=== PATIENT | male | born 1935 | race Caucasian/White ===

== ENCOUNTER 2019-01-14 08:33 | Day surgery (SDC) | payer OTHER ==
[~2019-01-14 08:33] MED LIST: BICA50TA7 PO; ENAL10TA PO; METF-444 PO; PRAV20TA4 PO; SODIUM CHLORIDE 0.9% 1000ML 1,000 ML IV ONE
[2019-01-14 08:56] VITALS: BP 108/75
[2019-01-14] MEDS ORDERED: PROPOFOL 10 MG/ML 20ML VIAL IV ONE (10:27)
[2019-01-14 10:56] VITALS: BP 109/57
[2019-01-14 11:03] VITALS: BP 114/62
[2019-01-14 11:09] VITALS: BP 101/61
== END 2019-01-14 11:30 | disposition home or self-care (01) ==
LOC: DAH 08:33 → ENDO 08:33 → EDSTATUS 09:15 → ENDO 11:30
PROVIDERS: ATTEND Internal Medicine
DX: D12.0 Benign neoplasm of cecum (principal); K62.1 Rectal polyp; K29.70 Gastritis, unspecified, without bleeding; B96.81 Helicobacter pylori [H. pylori] as the cause of diseases classified elsewhere; K57.30 Diverticulosis of large intestine without perforation or abscess without bleeding; K64.0 First degree hemorrhoids; K44.9 Diaphragmatic hernia without obstruction or gangrene; K31.89 Other diseases of stomach and duodenum; K22.8 Other specified diseases of esophagus; D50.9 Iron deficiency anemia, unspecified; I10 Essential (primary) hypertension; E11.9 Type 2 diabetes mellitus without complications; E78.2 Mixed hyperlipidemia; Z85.46 Personal history of malignant neoplasm of prostate; Z79.84 Long term (current) use of oral hypoglycemic drugs; Z79.899 Other long term (current) drug therapy; Z90.89 Acquired absence of other organs; Z98.890 Other specified postprocedural states
CPT/HCPCS: 43239; 45380; 82948; 88305; A4606; J2704; J7030

== ENCOUNTER 2021-11-01 06:17 | Day surgery (SDC) | payer OTHER ==
[2021-10-31 12:22] LABS: BASOPHILS % (AUTO) 0.4 % (0.0-5.0); EOSINOPHILS % (AUTO) 1.6 % (0.0-8.0); HEMATOCRIT 40.3 % (42-54); LYMPHOCYTES % (AUTO) 22.5 % (21.0-51.0); MEAN CORPUSCULAR HEMOGLOBIN 28.1 pg (27.0-33.0); MEAN CORPUSCULAR HGB CONC 32.5 g/dL (32.0-36.0); MEAN CORPUSCULAR VOLUME 86.5 fL (79-99); MONOCYTES % (AUTO) 6.6 % (3.0-13.0); NEUTROPHILS % (AUTO) 68.4 % (40.0-77.0); PLATELET COUNT (AUTO) 310 K/uL (130-400); RED BLOOD CELL COUNT(AUTO) 4.66 MIL/uL (4.50-6.20); RED CELL DISTRIBUTION WIDTH 14.6 % (11.0-15.5); WHITE BLOOD COUNT (AUTO) 8.2 K/uL (4.8-10.8)
[2021-10-31 12:35] LABS: INR 0.96 (0.85-1.15); PROTHROMBIN TIME 10.5 SEC (9.6-11.6)
[2021-10-31 12:36] LABS: PARTIAL THROMBOPLASTIN TIME 26.8 SEC (26.3-35.5)
[2021-10-31 12:53] LABS: CREATININE 0.9 mg/dL (0.5-1.5); POTASSIUM 4.7 mmol/L (3.5-5.1)
[2021-10-31 14:35] VITALS: BP 129/87
[~2021-11-01] VITALS: Ht 180.3 cm; Wt 73.8 kg
[2021-11-01] VITALS (18 sets, daily range): BP systolic 118–179; BP diastolic 68–105
[~2021-11-01 06:17] MED LIST changes: -ENAL10TA PO; +FERR-72 PO; -METF-444 PO; -PRAV20TA4 PO; +PRAV40TA3 PO; -SODIUM CHLORIDE 0.9% 1000ML 1,000 ML IV ONE; +VITAMIN B12 PO
[2021-11-01] MEDS ORDERED: FLUMAZENIL 0.1MG/1ML 5ML VIAL IV ONE (07:17)
[2021-11-01] MEDS ORDERED: LIDOCAINE HCL 2% VISCOUS 15 ML UDCUP ONE (07:17)
[2021-11-01] MEDS ORDERED: FENTANYL CITRATE PF 50 MCG/1 ML 2ML VIAL ONE (07:18)
[2021-11-01] MEDS ORDERED: NALOXONE HCL 0.4 MG/1 ML ML ONE (07:18)
[2021-11-01] MEDS ORDERED: MIDAZOLAM HCL 1 MG/ML 2ML VIAL ONE (07:19)
[2021-11-01] MEDS ORDERED: 0.9%NACL 1000ML 1,000 ML IV SCH (08:00)
== END 2021-11-01 09:45 | disposition home or self-care (01) ==
LOC: DAH 06:17
PROVIDERS: ATTEND Student in an Organized Health Care Education/Training Program
DX: I08.3 Combined rheumatic disorders of mitral, aortic and tricuspid valves (principal); I49.3 Ventricular premature depolarization; I10 Essential (primary) hypertension; Z79.01 Long term (current) use of anticoagulants; Z79.899 Other long term (current) drug therapy; Z98.890 Other specified postprocedural states
CPT/HCPCS: 36415; 80048; 82948; 85025; 85610; 85730; 87635; 93005; 93312; 93325; A4215; A4216; A4221; A4222; A4223 ×3; A4606; A4615; A4657; A4663; A7002; C9803; J2250; J3010; J7030; 99152; 99153; J2310; J3490

== ENCOUNTER → 2022-01-30 | Outpatient (CLI) | payer OTHER ==
[~2022-01-30] MED LIST changes: +AEC81 PO; +APIX5TAB PO; +DONE5TAB33 PO; +HYDR-4060 PO; +LACT10SO5 PO; +LORA10TA7 PO
== END | disposition home or self-care (01) ==
LOC: SHCH 08:50
PROVIDERS: ATTEND Student in an Organized Health Care Education/Training Program
DX: I82.412 Acute embolism and thrombosis of left femoral vein (principal); R60.9 Edema, unspecified
CPT/HCPCS: 93306; 93971

== ENCOUNTER → 2022-05-06 | Outpatient (CLI) | payer OTHER ==
[~2022-05-06] MED LIST changes: -HYDR-4060 PO; -LACT10SO5 PO; -VITAMIN B12 PO
== END | disposition home or self-care (01) ==
LOC: SHCH 08:22
PROVIDERS: ATTEND Student in an Organized Health Care Education/Training Program
DX: I82.412 Acute embolism and thrombosis of left femoral vein (principal); I87.1 Compression of vein; R60.0 Localized edema; I82.401 Acute embolism and thrombosis of unspecified deep veins of right lower extremity; Z86.718 Personal history of other venous thrombosis and embolism; I10 Essential (primary) hypertension; E78.5 Hyperlipidemia, unspecified; I35.0 Nonrheumatic aortic (valve) stenosis; Z79.01 Long term (current) use of anticoagulants; Z79.82 Long term (current) use of aspirin; Z79.899 Other long term (current) drug therapy
CPT/HCPCS: 93971

== ENCOUNTER 2022-11-11 19:28 | Emergency (ER) | payer OTHER, MEDICARE ==
[~2022-11-11 19:28] MED LIST changes: -AEC81 PO; -APIX5TAB PO; +METF500S9 PO
[2022-11-11 19:33] VITALS: BP 167/91
== END 2022-11-11 21:43 | disposition home or self-care (01) ==
LOC: EDH 19:28
DX: T85.628A Displacement of other specified internal prosthetic devices, implants and grafts, initial encounter (principal); E11.9 Type 2 diabetes mellitus without complications; E78.00 Pure hypercholesterolemia, unspecified; I10 Essential (primary) hypertension; Z79.84 Long term (current) use of oral hypoglycemic drugs; Y65.8 Other specified misadventures during surgical and medical care; Y92.89 Other specified places as the place of occurrence of the external cause
CPT/HCPCS: 99281

== ENCOUNTER → 2022-11-28 | Outpatient (CLI) | payer OTHER | END | disposition home or self-care (01) | LOC: RAH 10:25 | PROVIDERS: ATTEND Student in an Organized Health Care Education/Training Program | DX: I82.432 Acute embolism and thrombosis of left popliteal vein (principal); I82.412 Acute embolism and thrombosis of left femoral vein; I82.4Z2 Acute embolism and thrombosis of unspecified deep veins of left distal lower extremity; I35.0 Nonrheumatic aortic (valve) stenosis; I10 Essential (primary) hypertension; E78.5 Hyperlipidemia, unspecified; R42 Dizziness and giddiness; Z79.01 Long term (current) use of anticoagulants; Z79.899 Other long term (current) drug therapy | CPT/HCPCS: 93970 ==

== ENCOUNTER → 2024-03-07 | Outpatient (CLI) | payer OTHER | END | disposition home or self-care (01) | LOC: SHCH 13:12 | PROVIDERS: ATTEND Student in an Organized Health Care Education/Training Program | DX: I35.0 Nonrheumatic aortic (valve) stenosis (principal) | CPT/HCPCS: 93306 ==

== ENCOUNTER → 2024-05-31 | Outpatient (CLI) | payer OTHER ==
--- NOTE | 2024-06-02 07:44 | HMCSR ---
APPROVED REPORT Laterality: Bilateral Indications r01.1 Doppler Spectral Velocity Analysis PSV / EDVPSV / EDV ECA (R) 76 / cm/sECA (L) 60 / cm/s dICA (R) 57 / 24 cm/sdICA (L) 56 / 17 cm/s Rhina (R) 51 / 14 cm/smICA (L) 64 / 25 cm/s pICA (R) 81 / 24 cm/spICA (L) 57 / 19 cm/s dCCA (R) 64 / 19 cm/sdCCA (L) 72 / 22 cm/s mCCA (R) 82 / 19 cm/smCCA (L) 83 / 21 cm/s pCCA (R) 84 / 21 cm/spCCA (L) 103 / 28 cm/s Vert (R) 26 / cm/sVert (L) 36 / cm/s Subl. (R) 175 / cm/sSubl. (L) 133 / cm/s ICA/CCA 0.96ICA/CCA 0.62 Technologist Impression Minimal plaque noted in the bilateral carotids, without hemodynamic significance. Bilateral vertebral arteries appear antegrade. Conclusion Minimal plaque noted in the bilateral carotids, without hemodynamic significance. Bilateral vertebral arteries appear antegrade. Conclusion Minimal plaque noted in the bilateral carotids, without hemodynamic significance. Bilateral vertebral arteries appear antegrade.
== END | disposition home or self-care (01) ==
LOC: SHCH 12:32
PROVIDERS: ATTEND Student in an Organized Health Care Education/Training Program
DX: R01.1 Cardiac murmur, unspecified (principal)
CPT/HCPCS: 93880

== ENCOUNTER 2024-06-14 09:06 | Emergency (ER) | payer OTHER ==
[~2024-06-14] VITALS: Ht 180.3 cm; Wt 72.6 kg
--- NOTE | 2024-06-14 09:28 | ERN ---
ED Note History of Present Illness Stated Complaint: FALL Chief Complaint: Mechanical Fall Time Seen by MD: 09:10 Dictation: Is a 89-year-old male he said he had fallen this morning. He is not exactly sure of why he had fallen. But he said that he has not had any chest pain shortness of breath dizziness weakness syncope or presyncope before during after other than this fall and now he says he feels fine. Allergies: Coded Allergies: No Known Drug Allergies (Unverified Allergy, Unknown, 01/13/19) Home Meds Reported Medications Metformin HCl (Metformin HCl) 500 Mg/5 Ml Solution, 500 MG PO DAILY, ML 11/02/22 Loratadine (Loratadine) 10 Mg Tablet, 10 MG PO DAILY, TAB 01/30/22 Donepezil HCl (Donepezil HCl) 5 Mg Tablet, 5 MG PO HS, TAB 01/30/22 Bicalutamide (Bicalutamide) 50 Mg Tablet, 50 MG PO DAILY for prostate cancer, TAB 01/30/22 Ferrous Sulfate (Ferrous Sulfate) 325 Mg Tablet, 65 MG PO HS, TAB 10/31/21 Pravastatin Sodium (Pravastatin Sodium) 40 Mg Tablet, 60 MG PO HS, TAB 10/31/21 Past Medical History Past Medical History: Diabetes-Type II, DVT, High Cholesterol, Hypertension Additional Past Medical Hx: HX OF 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 LEG Surgical History: Other Surgical History Other: LEFT HIP REPLACEMENT, PROSTATE SX Social History: Negative Review of System Dictation Constitutional: Negative for fever,chills, and weight loss Eyes: Negative for injury, pain,redness, and discharge ENT: Negative for injury,pain or swelling Cardiovascular: Negative for chest pain, palpitations, and edema Respiratory: Negative for shortness of breath, cough, and wheezing, Abdomen/GI: Negative for abdominal pain, nausea, vomiting, diarrhea, and constipation Back: Negative for injury and pain : Negative for injury, bleeding and discharge MS/Extremity: Negative for injury and deformity Skin: Negative for rash, and discoloration Neuro: Negative for headache, weakness, numbness, tingling, and seizure Psych: Negative for suicide ideation, homicidal ideation, and hallucinations Initial Vital Sign VS Vital Signs Date Time Temp Pulse Resp B/P (MAP) Pulse Ox O2 Delivery O2 Flow Rate FiO2 06/14/24 09:08 98.2 80 20 178/100 99 Room Air 06/14/24 09:49 0 21 Physical Exam Dictation General: awake, alert, NAD Head/Face: Some mild bruising in the left posterior. Over the side of the scalp. Mild bleeding has already stopped Eyes: PERRL, EOMI, vision at baseline ENT: oral cavity clear, TMs clear, no signs of infection Neck: Trachea midline, supple, no nuchal rigidity Cardiovascular: RRR, normal S1/S2, No MRGs, no JVD Respiratory: CTAB, no respiratory distress, No rales or wheezes Abdomen: Soft, non-tender, non-distended, normal bowel sounds, no guarding or rebound. Skin: Warm, dry, normal turgor, no rash MS/Extremity: Pulses equal, no cyanosis, neurovascular intact, FROM Neuro: COAx4, GCS 15, strength 5/5, CN 2-12 intact, normal cerebellar exam, normal gait, Psych: Normal behavior, mood, and affect normal Results (Laboratory/Radiology) Laboratory/Radiology Laboratory Tests Test 06/14/24 10:02 White Blood Count 10.8 K/uL (4.8-10.8) Red Blood Count 4.58 MIL/uL (4.50-6.20) Hemoglobin 13.3 g/dL (14.0-18.0) L Hematocrit 41.5 % (42-54) L Mean Corpuscular Volume 90.6 fL (79-99) Mean Corpuscular Hemoglobin 29.0 pg (27.0-33.0) Mean Corpuscular Hemoglobin Concent 32.0 g/dL (32.0-36.0) Red Cell Distribution Width 14.0 % (11.0-15.5) Platelet Count 185 K/uL (130-400) Mean Platelet Volume 8.7 fL (7.5-10.5) Immature Granulocyte % (Auto) 0.5 % (0-1) Neutrophils (%) (Auto) 83.8 % (40.0-77.0) H Lymphocytes (%) (Auto) 7.0 % (21.0-51.0) L Monocytes (%) (Auto) 8.0 % (3.0-13.0) Eosinophils (%) (Auto) 0.3 % (0.0-8.0) Basophils (%) (Auto) 0.4 % (0.0-5.0) Neutrophils # (Auto) 9.0 K/uL (1.8-7.7) H Lymphocytes # (Auto) 0.8 K/uL (1.0-4.8) L Monocytes # (Auto) 0.9 K/uL (0.1-1.0) Eosinophils # (Auto) 0.03 K/uL (0.00-0.70) Basophils # (Auto) 0.04 K/uL (0.00-0.20) Absolute Immature Granulocyte (auto 0.05 K/uL (0-1) Nucleated Red Blood Cells 0.0 % (0.0-0.19) White Cell Morphology Comment See comments Sodium Level 135 mmol/L (136-145) L Potassium Level 4.0 mmol/L (3.5-5.1) Chloride Level 102 mmol/L (101-111) Carbon Dioxide Level 27 mmol/L (21-32) Blood Urea Nitrogen 18 mg/dL (7-18) Creatinine 1.1 mg/dL (0.5-1.3) Glomerular Filtration Rate Calc 65 mL/min (>90) Random Glucose 188 mg/dL (70-105) H Total Calcium 9.0 mg/dL (8.5-10.1) Magnesium Level 2.00 mg/dL (1.80-2.40) Total Bilirubin 1.2 mg/dL (0.2-1.0) H Aspartate Amino Transf (AST/SGOT) 28 U/L (10-37) Alanine Aminotransferase (ALT/SGPT) 22 U/L (12-78) Alkaline Phosphatase 78 U/L (50-136) Troponin I High Sensitivity 9 ng/L (4-75) Total Protein 7.3 g/dL (6.0-8.3) Albumin 3.2 g/dL (3.5-5.0) L ED Course ED Course Orders Procedure Category Date Status Time Ct Head/Brain W/O CT 06/14/24 Resulted Contrast 09:09 Cbc With Differential LAB 06/14/24 Complete 09:09 Comprehensive LAB 06/14/24 Complete Metabolic Panel 09:09 Troponin I High LAB 06/14/24 Complete Sensitivity 09:09 12 Lead Ekg Tracing- EKG 06/14/24 Complete Technical 09:09 Chest 1vw RAD 06/14/24 Resulted 09:09 Hip Bilat 2vw RAD 06/14/24 Resulted 09:09 Magnesium LAB 06/14/24 Complete 09:09 Ct Cervical Spine W/O CT 06/14/24 Resulted Contrast 09:09 Vital Signs Date Time Temp Pulse Resp B/P (MAP) Pulse Ox O2 Delivery O2 Flow Rate FiO2 06/14/24 10:48 98.2 86 14 121/57 99 Room Air* 0 21 06/14/24 09:49 98.4 89 14 113/72 99 Room Air* 0 21 06/14/24 09:08 98.2 80 20 178/100 99 Room Air Medical Decision Making MDM MDM: Differential diagnosis: Bleed pneumothorax ACS Rationale: Tests considered and ordered secondary to shared decision making include: Previous outside records reviewed: Old ER visits. Risk of complication and/or morbidity or mortality of patient management: None Medications-Per medication reconciliation Need for hospitalization: Patient does not meet criteria for hospitalization. Need for emergency major/minor surgery: No There are no social concerns with this patient. Prescription drug management Prescriptions will include symptomatic care Patient's prior external medical records from other ER visits were reviewed by me as indicated. Prior testing and results from previous visits were reviewed. Prior tests were taken into account with medical decision making and resource utilization, independent historian/historians were used to obtain complete medical history. I independently interpreted the test that were performed, results were reviewed by me and considered findings on radiology if ordered. Medical management and examination interpretation discussions were had by me with other qualified healthcare professionals as indicated for the patient's care. DX & DISP Disposition: Discharge Departure Impression: Primary Impression: Fall Condition: Stable Referrals: ROB BUTLER MD (PCP) COLE TAVARES MD Jun 14, 2024 09:28
--- NOTE | 2024-06-14 09:46 | EKG ---
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 Requested By: LIBBY MOJICA Order Number: [id number] Reading MD: Jessi Martinez Measurements Intervals [place] Rate: 105 P: 0 MA: 0 QRS: 68 QRSD: 91 T: -78 QT: 394 QTc: 521 Interpretive Statements Atrial fibrillation Anterior infarct, old Borderline repol abnormality, diffuse leads Prolonged QT interval Compared to ECG 11/04/2022 16:46:58 Myocardial infarct finding now present Sinus rhythm no longer present Ventricular premature complex(es) no longer present First degree AV block no longer present Electronically Signed On 06-15-2024 17:09:17 [employer] by Jessi Martinez Please click the below link to view image of tracing.
--- NOTE | 2024-06-14 09:53 | HMCIMG ---
Exam: NONCONTRAST CT BRAIN REASON: FALL. COMPARISON: 11/01/2022 TECHNIQUE: Images are obtained from vertex to the skull base. The exam was performed without IV contrast. FINDINGS: There is normal appearing brain parenchyma. There are no focal mass lesions. There is is no evidence of intracranial hemorrhage or acute stroke. Ventricles and sulci appear normal. Posterior fossa and brainstem structures are unremarkable. Paranasal sinuses and remaining extracranial soft tissues appear normal as well. IMPRESSION: 1. Normal noncontrast CT brain. CT was performed with one or more following dose reduction techniques: automated exposure control, adjustment of the mA and kv according to patient's size, or use of a iterative reconstruction technique.
[2024-06-14 10:09] LABS: BASOPHILS # (AUTO) 0.04 K/uL (0.00-0.20); BASOPHILS % (AUTO) 0.4 % (0.0-5.0); EOSINOPHILS # (AUTO) 0.03 K/uL (0.00-0.70); EOSINOPHILS % (AUTO) 0.3 % (0.0-8.0); HEMATOCRIT 41.5 % (42-54); IMMATURE GRANULOCYTE ABSOLUTE 0.05 K/uL (0-1); LYMPHOCYTES # (AUTO) 0.8 K/uL (1.0-4.8); MEAN CORPUSCULAR VOLUME 90.6 fL (79-99); MONOCYTES # (AUTO) 0.9 K/uL (0.1-1.0); NEUTROPHILS % (AUTO) 83.8 % (40.0-77.0); PLATELET COUNT (AUTO) 185 K/uL (130-400); RED BLOOD CELL COUNT(AUTO) 4.58 MIL/uL (4.50-6.20); WHITE BLOOD COUNT (AUTO) 10.8 K/uL (4.8-10.8)
--- NOTE | 2024-06-14 10:13 | HMCIMG ---
CT CERVICAL SPINE W/O CONTRAST REASON: FALL COMPARISON: None TECHNIQUE: Images are obtained from skull base to the upper thoracic spine in the axial plane. Sagittal and coronal reconstruction images were then performed. FINDINGS: There are normal appearing vertebral bodies. Alignment is unremarkable. There is mild interspace narrowing at the C4-5 and C5-6. There are moderate degenerative changes in the facets. There is no evidence of fracture or subluxation. Soft tissues appear normal as well. IMPRESSION: 1. Mild cervical degenerative changes, no acute finding. CT was performed with one or more following dose reduction techniques: automated exposure control, adjustment of the mA and kv according to patient's size, or use of a iterative reconstruction technique.
--- NOTE | 2024-06-14 10:17 | HMCIMG ---
CHEST 1VW REASON: FALL COMPARISON: 11/01/2022 FINDINGS: Single view of the chest was obtained. Lungs are clear. Heart size is normal. There is no pulmonary vascular congestion. Mediastinum and bony thorax appear unremarkable. IMPRESSION: 1. Normal single view chest x-ray.
--- NOTE | 2024-06-14 10:18 | HMCIMG ---
HIP BILAT 2VW REASON: FALL COMPARISON: None TECHNIQUE: 3 views were obtained of the pelvis and hips. FINDINGS: Bones of the pelvis appear intact. There are no visible fractures. There is total hip joint prosthesis on the left. Bones and hips appear otherwise unremarkable. Right hip joint space appears preserved. IMPRESSION: 1. No acute finding on views of the hips and pelvis.
[2024-06-14 10:21] LABS: CREATININE 1.1 mg/dL (0.5-1.3)
[2024-06-14 10:32] LABS: ALBUMIN 3.2 g/dL (3.5-5.0); BILIRUBIN,TOTAL 1.2 mg/dL (0.2-1.0); TOTAL PROTEIN, SERUM 7.3 g/dL (6.0-8.3)
[2024-06-14 10:48] VITALS: BP 121/57; PULSE 86; RESP 14; TEMP 98.3; O2SAT 99
--- NOTE | 2024-06-14 11:25 | NUR ---
PT IS AOX3 AMBULATION ASSESSMENT UNSTEADY STATES HAS A WALKER AT HOME. EDUCATED PT ON USING ASSISTED DEVICE FOR PREVENTION OF FALLS VERBALIZED UNDERSTANDING
== END 2024-06-14 11:33 | disposition home or self-care (01) ==
LOC: EDH 09:06
DX: S00.03XA Contusion of scalp, initial encounter (principal); E11.9 Type 2 diabetes mellitus without complications; E78.00 Pure hypercholesterolemia, unspecified; I10 Essential (primary) hypertension; M47.812 Spondylosis without myelopathy or radiculopathy, cervical region; Z79.84 Long term (current) use of oral hypoglycemic drugs; W18.39XA Other fall on same level, initial encounter; Y93.89 Activity, other specified; Y92.89 Other specified places as the place of occurrence of the external cause; Y99.8 Other external cause status
CPT/HCPCS: 36415; 70450; 71045; 72125; 73521; 80053; 83735; 84484; 85025; 93005; 99285